=== PATIENT | male | born 2000 | race Caucasian/White ===

== ENCOUNTER 2023-06-17 05:12 | Emergency (ER) | payer BC ==
[2023-06-17 05:57] LABS: AMPHETAMINES SCREEN, URINE NEGATIVE (CUTOFF=500); BARBITURATE SCREEN,URINE NEGATIVE (CUTOFF=200); BENZODIAZEPINES SCREEN,URINE NEGATIVE (CUTOFF=150); BUPRENORPHINE SCREEN,URINE NEGATIVE (CUTOFF=10); METHADONE SCREEN, URINE NEGATIVE (CUTOFF=200); METHAMPHETAMINES SCREEN, URINE NEGATIVE (CUTOFF=500); OXYCODONE SCREEN,URINE NEGATIVE (CUT0FF=100); PCP SCREEN,URINE NEGATIVE (CUTOFF=25); PROPOXYPHENE SCREEN,URINE NEGATIVE (CUTOFF=300); THC SCREEN,URINE 20 NG/ML PRESUMPTIVE POSITIVE (CUTOFF=50)
== END 2023-06-17 06:20 | disposition home or self-care (01) ==
LOC: MW.ED 05:12
DX: K20.90 Esophagitis, unspecified without bleeding (principal); R11.10 Vomiting, unspecified
CPT/HCPCS: 71045; 71045-26; 80305-QW; 99283; 99284

== ENCOUNTER 2023-09-16 19:19 | Emergency (ER) | payer OTHER, BC ==
[2023-09-16] MEDS ORDERED: Cyclobenzaprine 10 MG Tab PO STA (20:28)
== END 2023-09-16 20:44 | disposition home or self-care (01) ==
LOC: MW.ED 19:19
DX: M54.6 Pain in thoracic spine (principal); W00.9XXA Unspecified fall due to ice and snow, initial encounter
CPT/HCPCS: 99283; A9270